=== PATIENT | male | born 1960 | race Caucasian/White ===

== ENCOUNTER 2022-08-06 08:17 | Emergency (ER) | payer OTHER ==
[~2022-08-06] VITALS: Ht 165.1 cm; Wt 64.9 kg
[2022-08-06 08:25] VITALS: BP 114/78
--- NOTE | 2022-08-06 09:31 | NUR ---
61/M PRESENTS TO ED WITH C/O LLQ PAIN SINCE LAST NIGHT, REPORTS TAKING TYLENOL WITH SOME RELIEF. PATIENT DENIES N/V/D, CP, SOB.
[2022-08-06 09:57] LABS: BASOPHILS % (AUTO) 0.2 % (0.0-2.0); EOSINOPHILS # (AUTO) 0.1 K/uL (0-0.4); EOSINOPHILS % (AUTO) 1.3 % (0.0-4.0); HEMATOCRIT 44.5 % (36-52); HEMOGLOBIN 15.2 g/dL (12.0-18.0); LYMPHOCYTES # (AUTO) 2.1 K/uL (2.0-11.5); LYMPHOCYTES % (AUTO) 25.1 % (20.5-51.1); MEAN CORPUSCULAR HEMOGLOBIN 31 pg (27-31); MEAN CORPUSCULAR HGB CONC 34 g/dL (33-37); MEAN CORPUSCULAR VOLUME 90.5 fL (80-94); MONOCYTES # (AUTO) 0.7 K/uL (0.8-1.0); NEUTROPHILS # (AUTO) 5.6 K/uL (1.8-7.7); NEUTROPHILS % (AUTO) 65.4 % (42.2-75.2); PLATELET COUNT (AUTO) 241 K/uL (140-450); RED BLOOD CELL COUNT(AUTO) 4.92 MIL/uL (4.20-6.10); RED CELL DISTRIBUTION WIDTH 13.1 % (11.6-13.7); WHITE BLOOD COUNT (AUTO) 8.5 K/uL (4.8-10.8)
[2022-08-06 10:16] LABS: APPEARANCE,URINE CLEAR (CLEAR); BILIRUBIN,URINE NEGATIVE (NEGATIVE); BLOOD, URINE NEGATIVE (NEGATIVE); COLOR,URINE YELLOW (YELLOW); LEUKOCYTE ESTERASE ,URINE NEGATIVE (NEGATIVE); NITRITE, URINE NEGATIVE (NEGATIVE); UGLUCOSE NEGATIVE (NEGATIVE)
[2022-08-06 10:33] LABS: ALBUMIN 3.7 g/dL (3.4-5.0); ANION GAP 11.8 (8-16); CARBON DIOXIDE 29.8 mmol/L (21-32); CREATININE 0.8 mg/dL (0.6-1.3); POTASSIUM 4.6 mmol/L (3.5-5.1); TOTAL BILIRUBIN 1.2 mg/dL (0.0-1.0)
[2022-08-06] MEDS ORDERED: AMOX-999 PO (10:54)
[2022-08-06] MEDS ORDERED: ACET-8386 PO (10:54)
[2022-08-06 11:01] VITALS: BP 120/72
--- NOTE | 2022-08-06 11:02 | NUR ---
Note undone in EDM - 08/06/22 at 1104 by BRUNA Patient discharged with v/s stable. Written and verbal after care instructions given and explained for Diverticulitis, Cholelithiasis. Patient alert, oriented and verbalized understanding of instructions. Ambulatory with steady gait. All questions addressed prior to discharge. ID band removed. Patient advised to follow up with PMD. Rx of Amoxicillin, [place] 5-325 given. Patient educated on indication of medication including possible reaction and side effects. Opportunity to ask questions provided and answered.
== END 2022-08-06 11:02 | disposition home or self-care (01) ==
LOC: MED 08:17
DX: K57.32 Diverticulitis of large intestine without perforation or abscess without bleeding (principal); K80.20 Calculus of gallbladder without cholecystitis without obstruction; K76.9 Liver disease, unspecified; N40.0 Benign prostatic hyperplasia without lower urinary tract symptoms; F17.200 Nicotine dependence, unspecified, uncomplicated
CPT/HCPCS: 36415; 80053; 81003; 85025; 99284

== ENCOUNTER 2022-08-26 07:12 | Emergency (ER) | payer OTHER ==
[~2022-08-26] VITALS: Ht 162.6 cm; Wt 63.5 kg
[~2022-08-26 07:12] MED LIST: ACET-8905 PO; AMOX-999 PO
[2022-08-26 07:18] VITALS: BP 132/55
--- NOTE | 2022-08-26 07:18 | NUR ---
TO BED AMBULATORY
[2022-08-26] MEDS ORDERED: NACL 0.9% 1,000 ML IV SCH (07:35)
--- NOTE | 2022-08-26 07:56 | NUR ---
61YO MALE PT C/O LLQ TO L FLANK PAIN XYESTERDAY. REPORTS SUDDEN NEW ONSET ALONG WITH DYSURIA AND N/VX1 -BLOOD. PT WAS SEEN IN ER FOR S/S 1 MONTH AGO AND WAS DX DIVERTICULITIS. STATES RELIEF SINCE W/ RX AMOXICILLIN GIVEN. ABDOMEN FLAT, TENDER , ACTIVE X3. DENIES DIARRHEA, CHEST PAIN, FEVER OR CHILLS. PT AAOX4, HOB POSITIONED PER COMFORT. [place] SPEAKING HX:DENIES NKA
[2022-08-26 08:26] LABS: BASOPHILS % (AUTO) 0.2 % (0.0-2.0); EOSINOPHILS % (AUTO) 0.3 % (0.0-4.0); HEMATOCRIT 47.1 % (36-52); HEMOGLOBIN 15.9 g/dL (12.0-18.0); LYMPHOCYTES # (AUTO) 1.4 K/uL (2.0-11.5); LYMPHOCYTES % (AUTO) 13.2 % (20.5-51.1); MEAN CORPUSCULAR HEMOGLOBIN 31 pg (27-31); MEAN CORPUSCULAR HGB CONC 34 g/dL (33-37); MEAN CORPUSCULAR VOLUME 90.6 fL (80-94); MONOCYTES # (AUTO) 0.6 K/uL (0.8-1.0); MONOCYTES % (AUTO) 5.9 % (1.7-9.3); NEUTROPHILS # (AUTO) 8.7 K/uL (1.8-7.7); NEUTROPHILS % (AUTO) 80.4 % (42.2-75.2); PLATELET COUNT (AUTO) 263 K/uL (140-450); RED CELL DISTRIBUTION WIDTH 12.9 % (11.6-13.7); WHITE BLOOD COUNT (AUTO) 10.8 K/uL (4.8-10.8)
--- NOTE | 2022-08-26 08:44 | NUR ---
PT AMBULATED TO RESTROOM
--- NOTE | 2022-08-26 08:49 | NUR ---
PT AMBULATED BACK TO ROOM
--- NOTE | 2022-08-26 08:50 | NUR ---
61/M PRESENTS TO ED WITH C/O LLQ RADIATING TO LEFT FLANK SINCE YESTERDAY. PATIENT REPORTS DYSURIA, N/V TODAY, STATES HE WAS RECENTLY DX WITH DIVERTICULITIS AND GIVEN RX OF ABX. STATES HE EXPERIENCED RELIEF BUT BELIEVES SYMPTOMS ARE RETURNING. PATIENT DENIES CP, SOB, FEVERS, DIARRHEA.
[2022-08-26 09:59] LABS: ALBUMIN 3.6 g/dL (3.4-5.0); ANION GAP 14.2 (8-16); CARBON DIOXIDE 27.7 mmol/L (21-32); CREATININE 0.9 mg/dL (0.6-1.3); POTASSIUM 4.9 mmol/L (3.5-5.1)
[2022-08-26 10:05] VITALS: BP 107/67
[2022-08-26 10:07] LABS: APPEARANCE,URINE CLEAR (CLEAR); BILIRUBIN,URINE NEGATIVE (NEGATIVE); BLOOD, URINE NEGATIVE (NEGATIVE); COLOR,URINE YELLOW (YELLOW); LEUKOCYTE ESTERASE ,URINE NEGATIVE (NEGATIVE); NITRITE, URINE NEGATIVE (NEGATIVE); UGLUCOSE NEGATIVE (NEGATIVE)
--- NOTE | 2022-08-26 10:09 | NUR ---
PT TAKEN TO CT VIA WHEELCHAIR
--- NOTE | 2022-08-26 10:25 | NUR ---
Shawna kay in [facility] - 08/26/22 at 1030 by PHSEP PT BROUGHT BACK VIA MARVIN
--- NOTE | 2022-08-26 10:25 | NUR ---
PT BROUGHT BACK VIA WHEELCHAIR
[2022-08-26] MEDS ORDERED: METR-435 PO (11:02)
[2022-08-26] MEDS ORDERED: CIPR500T4 PO (11:02)
--- NOTE | 2022-08-26 11:15 | NUR ---
IV removed, catheter intact and site benign. Applied folded 4x4 gauze and tape to stop bleeding.
[2022-08-26] MEDS ORDERED: ACET-9527 PO (11:16)
--- NOTE | 2022-08-26 11:16 | NUR ---
Patient discharged with v/s stable. Written and verbal after care instructions FOR CHOLELOTHITIS AND DIVERTICULITIS given and explained. Patient alert, oriented and verbalized understanding of instructions. Ambulatory with steady gait. All questions addressed prior to discharge. ID band removed. Patient advised to follow up with PMD. Rx of HYDROCODONE, CIPRO AND METRONIDAZOLE given. Opportunity to ask questions provided and answered.
== END 2022-08-26 11:16 | disposition home or self-care (01) ==
LOC: MED 07:12
DX: K57.92 Diverticulitis of intestine, part unspecified, without perforation or abscess without bleeding (principal); K80.20 Calculus of gallbladder without cholecystitis without obstruction; Z79.899 Other long term (current) drug therapy
CPT/HCPCS: 36415; 74177; 80053; 81003; 83690; 85025; 96360; 99285; Q9967